=== PATIENT | male | born 1985 | race African-American/Black ===

== ENCOUNTER 2017-10-13 08:40 | Emergency (ER) | payer MEDICAID, OTHER ==
[~2017-10-13] VITALS: Ht 190.5 cm; Wt 158.8 kg
[~2017-10-13 08:40] MED LIST: ALBUTEROL SULF8.5 GM INH; ALBUTEROL2.5 MG/3 M INH; AZITHROMYCIN250 MG ORAL; CLARITIN-D 241 EACH PO; E-Z SPACER1 EACH MC; FLONASE1 SPRAYS NASAL; GUAIFENESIN-CO118 M1 ORAL; LORATADINE10 M2 PO; MEDROL DOSEPAK4 MG ORAL; NKM; OCEAN45 ML NASAL; PREDNISONE20 MG ORAL; PROMETHAZINE-C118 M1 ORAL; PSEUDOEPHEDRINE30 MG PO; ROBITUSSIN DM5 ML PO; TESSALON PERLE100 M2 ORAL
--- NOTE | 2017-10-13 09:31 | Emergency Room Report ---
History of Present Illness General Chief Complaint: Lower Extremity Injury Source: Patient Present Illness HPI 31-year-old male presents ED complaining of left ankle pain and swelling. States that last night he was helping his [id number] move furniture and in the process missed a step, rolled his left ankle. Denies any other injuries. Patient presents with pain and swelling to the left ankle. 7/10, throbbing, nonradiating. Patient is able to bear weight. No other aggravating relieving factors. Denies any other associated symptom Allergies: Coded Allergies: No Known Allergies (Unverified , 10/13/14) Patient History Past Medical History: HTN, asthma Past Surgical History: none Pertinent Family History: none Social History: Denies: smoking, alcohol use, drug use Immunizations: UTD Reviewed Nursing Documentation: PMH: Agreed, PSxH: Agreed Nursing Documentation-PMH Past Medical History: No History, Except For Hx Hypertension: Yes Hx Asthma: Yes Review of Systems All Other Systems: negative except mentioned in HPI Physical Exam Vital Signs Date Time Temp Pulse Resp B/P (MAP) Pulse Ox O2 Delivery O2 Flow Rate FiO2 10/13/17 08:47 98.1 87 18 143/102 96 Room Air Sp02 EP Interpretation: reviewed, normal General Appearance: no apparent distress, alert, GCS 15, non-toxic Head: normocephalic Eyes: bilateral eye normal inspection, bilateral eye PERRL ENT: normal ENT inspection Neck: normal inspection Respiratory: normal inspection Cardiovascular #1: normal inspection Gastrointestinal: normal inspection Rectal: deferred Genitourinary: no CVA tenderness Musculoskeletal: swelling - L ankle, tender Neurologic: alert, oriented x3, responsive, motor strength/tone normal, sensory intact, speech normal Psychiatric: judgement/insight normal, memory normal, mood/affect normal, no suicidal/homicidal ideation Skin: normal inspection Lymphatic: normal inspection Procedures Splinting Splinting : Consent: Verbal Pre-Made Type: JENS wrap Pre-Proc Neuro Vasc Exam: normal Post-Proc Neuro Vasc Exam: normal Patient Tolerated: Well Complications: None Medical Decision Making Diagnostic Impression: Primary Impression: Ankle sprain Qualified Codes: S93.402A - Sprain of unspecified ligament of left ankle, initial encounter ER Course Hospital Course 31-year-old M presents to ED complaining of L ankle pain s/p trip and fall Differential diagnoses include: Fracture, dislocation, sprain, contusion Clinical course Patient placed on stretcher. After initial history and physical, I ordered xrays of L foot/ankle Patient declined pain medications Xrays prelim read shows no acute fracture/dislocation. placed in jens wrap, given crutches Diagnosis - ankle sprain Stable and discharged to home with prescription for Motrin. apply ice, keep elevated. weight bear as tolerated. Followup with PMD. Return to ED if symptoms recur or worsen Other X-Ray Diagnostic Results Other X-Ray Diagnostic Results #1: X-Ray ordered: left ankle # of Views/Limited Vs Complete: 3 View Indication: Pain EP Interpretation: Yes Interpretation: no dislocation, no fractures Impression: Other - soft tissue swelling. no fx Electronically Signed by: Electronically signed by Efra Flowers MD Other X-Ray Diagnostic Results #2: X-Ray ordered: Left foot # of Views/Limited Vs Complete: 3 View Indication: Pain EP Interpretation: Yes Interpretation: no dislocation, no soft tissue swelling, no fractures Impression: No acute disease Electronically Signed by: Electronically signed by Efra Flowers MD Last Vital Signs Date Time Temp Pulse Resp B/P (MAP) Pulse Ox O2 Delivery O2 Flow Rate FiO2 10/13/17 08:47 98.1 87 18 143/102 96 Room Air Status: improved Disposition: HOME, SELF-CARE Condition: Stable Scripts Ibuprofen* (MOTRIN*) 600 Mg Tablet 600 MG ORAL Q8H Y for For Pain, #30 TAB 0 Refills Prov: EFRA FLOWERS M.D. 10/13/17 Referrals: [facility]ERR[facility] (PCP) EFRA FLOWERS M.D. Oct 13, 2017 09:31
[2017-10-13] MEDS ORDERED: IBUPROFEN600 MG ORAL (09:51)
[2017-10-13 10:05] VITALS: BP 134/95
--- NOTE | 2017-10-13 13:10 | Diagnostic Imaging Report ---
Indication: PAIN swelling and pain status post fall Technique: 3 views left foot Comparison: none Findings: There is hammertoe deformity of the second through fifth digits. 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 No acute fractures. No dislocations. The joint spaces are preserved. Impression: No acute bony trauma. Findings as noted
--- NOTE | 2017-10-13 13:12 | Diagnostic Imaging Report ---
Indication: PAIN left ankle pain swelling of the lateral site, status post trip and fall Technique: 3 views of the left ankle Comparison: none Findings: There is lateral soft tissue swelling. Small irregular calcific lesion projects adjacent to the tip of the lateral malleolus. No acute fractures otherwise. No dislocations. Joint spaces are preserved Impression: Doubt acute bony trauma; small ossific density adjacent to the lateral malleolus could represent a small avulsion injury, however. Evidence of lateral soft tissue injury Findings discussed by phone with Dr. Flowers at the time of interpretation
== END 2017-10-13 10:05 | disposition home or self-care (01) ==
LOC: EMR 09:26
DX: S93.402A Sprain of unspecified ligament of left ankle, initial encounter (principal); X50.1XXA Overexertion from prolonged static or awkward postures, initial encounter; Y92.89 Other specified places as the place of occurrence of the external cause; I10 Essential (primary) hypertension; J45.909 Unspecified asthma, uncomplicated
CPT/HCPCS: 99284

== ENCOUNTER 2019-01-02 20:07 | Emergency (ER) | payer MEDICAID, OTHER ==
[~2019-01-02] VITALS: Ht 188 cm; Wt 149.7 kg
[~2019-01-02 20:07] MED LIST changes: +IBUPROFEN600 MG ORAL
[2019-01-02] MEDS ORDERED: NKM (20:16)
[2019-01-02 20:21] VITALS: BP 130/96
--- NOTE | 2019-01-02 20:25 | NUR ---
ED Nurse Note: Patient ambulated to ED c/o sexually transmitted infection screen. Denies symptoms. Sexual partner reports being positive for Trichomoniasis. Pt denies pain. no abnormalities noted to urine or urination.
--- NOTE | 2019-01-02 20:51 | Emergency Room Report ---
History of Present Illness General Chief Complaint: General Complaint Source: Patient Present Illness HPI Patient presents with dysuria for a few days. His partner apparently is being treated for Trichomonas. He's here to get treatment for Trichomonas. The patient is not circumcised. Denies discharge. The patient had recent evaluation for sexually transmitted disease and states that he's certain he does not have chlamydia or gonorrhea at this time. He denies any fevers, chills, nausea, vomiting, diarrhea, joint pain, eye discharge. History of hypertension. History of asthma, denies wheezing. Allergies: Coded Allergies: No Known Allergies (Unverified , 10/13/14) Patient History Past Medical History: see triage record Social History: Denies: smoking - Former Social History Narrative In stable relationship Reviewed Nursing Documentation: PMH: Agreed; PSxH: Agreed Nursing Documentation-PMH Past Medical History: No History, Except For Hx Hypertension: Yes Hx Asthma: Yes Review of Systems All Other Systems: negative except mentioned in HPI Physical Exam Vital Signs Date Time Temp Pulse Resp B/P (MAP) Pulse Ox O2 Delivery O2 Flow Rate FiO2 01/02/19 20:12 98.1 71 12 134/102 96 Room Air 01/02/19 20:21 99 Sp02 EP Interpretation: reviewed, normal General Appearance: well appearing, no apparent distress, GCS 15 Head: normocephalic, atraumatic Eyes: bilateral eye normal inspection, bilateral eye PERRL ENT: hearing grossly normal, normal voice Neck: full range of motion, supple Respiratory: no respiratory distress, speaking full sentences Gastrointestinal: overweight Genitourinary: no CVA tenderness, penis normal - Uncircumcised no discharge Musculoskeletal: back normal, gait/station normal Neurologic: alert, normal gait Psychiatric: mood/affect normal Skin: no rash Medical Decision Making Diagnostic Impression: Primary Impression: Exposure to trichomonas Additional Impression: UTI (urinary tract infection) Qualified Codes: N39.0 - Urinary tract infection, site not specified ER Course Patient presents with dysuria and possible exposure to trichomonas. Differential includes trichomonas, UTI, other sexually transmitted diseases. Urinalysis indicated. Patient treated for trichomonas with Flagyl. Urinalysis with pyuria. Macrobid begun. Patient stable for outpatient observation and treatment. Laboratory Tests Test 01/02/19 20:37 Urine Color Yellow Urine Appearance Clear Urine pH 5 (4.5-8.0) Urine Specific [place] 1.025 (1.005-1.035) Urine Protein 2+ (NEGATIVE) H Urine Glucose (UA) Negative (NEGATIVE) Urine Ketones 1+ (NEGATIVE) H Urine Blood 2+ (NEGATIVE) H Urine Nitrite Negative (NEGATIVE) Urine Bilirubin Negative (NEGATIVE) Urine Urobilinogen 1 MG/DL (0.0-1.0) H Urine Leukocyte Esterase 2+ (NEGATIVE) H Urine RBC 5-10 /HPF (0 - 0) H Urine WBC 20-30 /HPF (0 - 0) H Urine Squamous Epithelial Cells None /LPF (NONE/OCC) Urine Bacteria Moderate /HPF (NONE) H Chlamydia trachomatis RNA Pending Neisseria gonorrhoeae RNA Pending Last Vital Signs Date Time Temp Pulse Resp B/P (MAP) Pulse Ox O2 Delivery O2 Flow Rate FiO2 01/02/19 21:53 98.1 61 13 133/97 99 Room Air 99 Status: improved Disposition: HOME, SELF-CARE Condition: Improved Scripts Nitrofurantoin Monohyd/M-Cryst* (MACROBID 100 MG*) 100 Mg Capsule 100 MG ORAL EVERY 12 HOURS, #14 CAP Prov: Raulito Hooper MD 01/02/19 Metronidazole* (FLAGYL*) 500 Mg Tablet 500 MG ORAL THREE TIMES A DAY, #20 TAB 0 Refills Prov: Raulito Hooper MD 01/02/19 Referrals: [facility]ERR[facility] (PCP) Raulito Hooper MD Jan 02, 2019 20:51
[2019-01-02 20:59] LABS: APPEARANCE,URINE CLEAR; BILIRUBIN, URINE NEGATIVE (NEGATIVE); GLUCOSE, URINE (UA) NEGATIVE (NEGATIVE); KETONES,URINE 1+ (NEGATIVE); LEUKOCYTE ESTERASE ,URINE 2+ (NEGATIVE); NITRITE,URINE NEGATIVE (NEGATIVE); PH,URINE 5 (4.5-8.0); PROTEIN,URINE 2+ (NEGATIVE); UROBILINOGEN,URINE 1 MG/DL (0.0-1.0)
[2019-01-02] MEDS ORDERED: metroNIDAZOLE 500mg tab ORAL ONE (21:00)
[2019-01-02 21:04] LABS: COLOR,URINE YELLOW
[2019-01-02] MEDS ORDERED: FLAGYL500 MG ORAL (21:49)
[2019-01-02] MEDS ORDERED: NITROFURANTOIN100 M2 ORAL (21:49)
[2019-01-02 21:53] VITALS: BP 133/97
--- NOTE | 2019-01-02 21:53 | NUR ---
ER DISCHARGE NOTE: Patient is cleared to be discharged per ERMD, pt is aox4, on room air, with stable vital signs. pt was given dc and prescription instructions, pt was able to verbalize understanding, pt id band removed without complications. pt is able to ambulate with steady gait. pt took all belongings.
== END 2019-01-02 21:53 | disposition home or self-care (01) ==
LOC: EMR 20:31
DX: N39.0 Urinary tract infection, site not specified (principal); Z20.9 Contact with and (suspected) exposure to unspecified communicable disease; I10 Essential (primary) hypertension; J45.909 Unspecified asthma, uncomplicated
CPT/HCPCS: 81003; 87086; 87491; 87590; 99283